=== PATIENT | male | born 1955 | race Hispanic/Latino ===

== ENCOUNTER → 2018-07-26 | Outpatient (CLI) | payer OTHER ==
[~2018-07-26] MED LIST: GADOBENATE DIMEGLUMINE 0 ML IV ONE
[2018-07-26 10:29] LABS: BLOOD UREA NITROGEN 10 mg/dL (7-26); BUN/CREATININE RATIO 11 (6-25); CREATININE, SERUM 0.87 mg/dL (0.72-1.25); EST GLOMERULAR FILTRATION RATE > 60 ML/MIN (60-)
== END ==
LOC: MRI 08:51
PROVIDERS: ATTEND Family Medicine
DX: K86.2 Cyst of pancreas (principal); Z53.09 Procedure and treatment not carried out because of other contraindication
CPT/HCPCS: 36415; 82565; 84520

== ENCOUNTER → 2018-08-01 | Outpatient (CLI) | payer OTHER ==
[~2018-08-01] MED LIST changes: -GADOBENATE DIMEGLUMINE 0 ML IV ONE; +IOPAMIDOL 370 MG/ML 200 ML INFUS..BTL INJ ONE; +SODIUM CHLORIDE 0.9% 50ML 50 ML ONE
--- NOTE | 2018-08-02 07:31 | Diagnostic Imaging Report ---
EXAMINATION: CT of the abdomen and pelvis with and without contrast. TECHNIQUE: Spiral CT images of the abdomen and pelvis were performed from the lung bases to the lesser trochanters before and after the intravenous administration of 100 cc Isovue-370 and the oral administration of water. Coronal and sagittal reformatted images were obtained. Pancreatic protocol was performed. COMPARISON: No prior images are available. Reports from examinations from 11/18/2015 and 09/28/2012 are available for review CLINICAL HISTORY:Pancreatic cyst DISCUSSION: ABDOMEN/PELVIS: LOWER THORAX:Calcified granuloma left lung base. Otherwise unremarkable. HEPATOBILIARY: No focal hepatic lesions. No intra-or extrahepatic biliary ductal dilation. The gallbladder has been removed. SPLEEN: No splenomegaly. 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 The remnant pancreatic body and tail is unremarkable. No solid or cystic lesion is identified on the current examination. ADRENALS: No adrenal nodules. KIDNEYS/URETERS: No hydronephrosis, stones, or solid mass lesions. PELVIC ORGANS/BLADDER: The urinary bladder is unremarkable. The prostate is enlarged, measuring 5.5 cm transversely. PERITONEUM/RETROPERITONEUM: No free air or fluid. LYMPH NODES: No intra-abdominal, retroperitoneal, pelvic or inguinal lymphadenopathy. VESSELS: Atherosclerotic calcification of the abdominal aorta and major branch vessels without aneurysmal dilatation. Portal vein is patent. GI TRACT: The large bowel shows no gross wall thickening. The colon is moderately distended with gas and stool. The appendix is not definitively identified. 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 No small bowel dilatation to suggest obstruction BONES AND SOFT TISSUE: No bony destructive lesions. No focal soft tissue abnormalities. 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 No cystic lesion is identified in the remnant pancreas per clinical query. Signed by: Dr. Paras Terry M.D. on 08/02/2018 7:27 AM
== END ==
LOC: CT 16:42
PROVIDERS: ATTEND Family Medicine
DX: K86.2 Cyst of pancreas (principal)
CPT/HCPCS: 74178; Q9967

== ENCOUNTER → 2020-01-05 | Outpatient (CLI) | payer OTHER ==
[2020-01-05 17:59] LABS: BLOOD UREA NITROGEN 10 mg/dL (7-26); BUN/CREATININE RATIO 11 (6-25); CREATININE, SERUM 0.92 mg/dL (0.72-1.25); EST GLOMERULAR FILTRATION RATE > 60 ML/MIN (60-)
--- NOTE | 2020-01-05 18:45 | Diagnostic Imaging Report ---
EXAM: CT Abdomen and Pelvis WITH contrast INDICATION: 64 old male with history of pancreatic surgery who presents with abdominal pain. COMPARISON: CT abdomen and pelvis on 08/01/2018. TECHNIQUE: Abdomen and pelvis were scanned utilizing a multidetector helical scanner from the lung base to the pubic symphysis after administration of IV contrast. Coronal and sagittal reformations were obtained. Routine protocol was performed. Scan was performed when during portal venous phase. IV CONTRAST: 100 mL of Isovue 370 ORAL CONTRAST: None COMPLICATIONS: None RADIATION DOSE: Total DLP: 174.93 mGy*cm Estimated effective dose: (DLP x 0.015 x size factor) mSv CTDIvol has been reviewed. It is below the limits set by the Radiation Protocol Committee (RPC). Dose modulation, iterative reconstruction, and/or weight based adjustment of the mA/kV was utilized to reduce the radiation dose to as low as reasonably achievable. FINDINGS: LINES and TUBES: None. LOWER THORAX: Unremarkable HEPATOBILIARY: Diffusely hypodense, compatible with hepatic steatosis. No focal hepatic lesions. No biliary ductal dilation. GALLBLADDER: No radio-opaque stones or sludge. No wall thickening. SPLEEN: No splenomegaly. PANCREAS: Postsurgical changes of Whipple. No pancreatic mass. ADRENALS: No adrenal nodules KIDNEYS/URETERS: Kidneys enhance symmetrically. No hydronephrosis. No cystic or solid mass lesions. No stones. GI TRACT: Post surgical changes of Whipple procedure. No abnormal distention, wall thickening, or evidence of bowel obstruction. There is large stool burden throughout the colon. The appendix is not identified in isolation, however no secondary signs of appendicitis. PELVIC ORGANS/BLADDER: Unremarkable. LYMPH NODES: No lymphadenopathy. VESSELS: Unremarkable. PERITONEUM / RETROPERITONEUM: No free air or fluid. BONES: Unremarkable. SOFT TISSUES: Unremarkable. IMPRESSION: 1. Post surgical changes of Whipple procedure without evidence of recurrent tumor. 2. Large stool burden throughout the colon which can present clinically as constipation. No evidence of bowel obstruction or inflammation. Signed by: Dennis Keith MD on 01/05/2020 6:42 PM
== END ==
LOC: CT 17:18
PROVIDERS: ATTEND Family Medicine
DX: R63.4 Abnormal weight loss (principal)
CPT/HCPCS: 36415; 74177; 82565; 84520; Q9967